=== PATIENT | female | born 1990 | race Asian ===

== ENCOUNTER 2019-05-17 09:39 | Emergency (ER) | payer OTHER ==
[2019-05-17 10:38] LABS: URINE PH (Dip) POC 5.5 (5.0-8.5)
[2019-05-17 10:38] LABS: URINE BLOOD (Dip) POC 3+ (NEGATIVE); URINE GLUCOSE (Dip) POC Negative (NEGATIVE); URINE KETONES (Dip) POC Negative (NEGATIVE); URINE LEUKOCYTE EST (Dip) POC Negative (NEGATIVE); URINE NITRITE (Dip) POC Negative (NEGATIVE); URINE TOTAL PROTEIN POC Trace (NEGATIVE)
[2019-05-17] MEDS: KETOROLAC 30 MG INJ IM (10:43)
== END 2019-05-17 12:13 | disposition home or self-care (01) ==
LOC: FTE 12:13
DX: S83.91XA Sprain of unspecified site of right knee, initial encounter (principal); F17.210 Nicotine dependence, cigarettes, uncomplicated; X50.1XXA Overexertion from prolonged static or awkward postures, initial encounter; Y92.9 Unspecified place or not applicable
CPT/HCPCS: 29505; 73562; 81003; 81025; 96372; 99284-25